=== PATIENT | male | born 1950 | race Caucasian/White ===

== ENCOUNTER → 2017-02-17 | Outpatient (CLI) | payer BC ==
[~2017-02-17] MED LIST: ASPI-621 PO; ASPIRIN PO; CALCIUM PO; CARV6.252 PO; CLOP75TA PO; COQ10 PO; FISH1CAP PO; FLUTICASONE; FURO-93 PO; HYDR-3245 PO; ISOS60TA36 PO; LISI-167 PO; LISI-170 PO; METF500T4 PO; NIAC500T9 PO; NITR0.4T SL; NITROSTAT PO; POTA10TA5 PO; PRAV40TA2 PO; PRAV80TA2 PO; TRAM50TA2 PO
== END | disposition home or self-care (01) ==
LOC: CFH 14:02
PROVIDERS: ATTEND Internal Medicine Cardiovascular Disease
DX: I70.0 Atherosclerosis of aorta (principal); I65.8 Occlusion and stenosis of other precerebral arteries; E78.2 Mixed hyperlipidemia; I10 Essential (primary) hypertension; Z98.890 Other specified postprocedural states
CPT/HCPCS: 71020

== ENCOUNTER 2017-06-17 12:05 | Day surgery (SDC) | payer MEDICARE ==
[~2017-06-17] VITALS: Ht 172.7 cm; Wt 80.9 kg
[2017-06-17 13:29] VITALS: BP 183/94
[2017-06-17] MEDS ORDERED: OMEP20TA62 PO (13:48)
[2017-06-17] MEDS ORDERED: ATOR40TA PO (13:48)
[2017-06-17] MEDS ORDERED: LOSA100T6 PO (13:48)
[2017-06-17] MEDS ORDERED: FLUT9.9S NAS (13:48)
[2017-06-17] MEDS ORDERED: ALLERGY PO (13:50)
[2017-06-17 13:53] LABS: BASOPHILS # (AUTO) 0.02 x10^3/uL (0-0.1); BASOPHILS % (AUTO) 0 % (0-1); EOSINOPHILS # (AUTO) 0.17 x10^3/uL (0-0.4); EOSINOPHILS % (AUTO) 2 % (1-7); LYMPHOCYTES # (AUTO) 1.93 x10^3/uL (1-3.4); LYMPHOCYTES % (AUTO) 25 % (22-44); MD NO; MEAN CORPUSCULAR HEMOGLOBIN 33.7 pg (27.5-34.5); MEAN CORPUSCULAR HGB CONC 34.2 g/dL (33.2-36.2); MEAN CORPUSCULAR VOLUME 98.7 fL (81-97); MEAN PLATELET VOLUME 7.8 fL (7.4-10.4); MONOCYTES # (AUTO) 0.66 x10^3/uL (0.2-0.8); MONOCYTES % (AUTO) 9 % (2-9); NEUTROPHILS # (AUTO) 4.96 x10^3/uL (1.8-6.8); NEUTROPHILS % (AUTO) 64 % (42-75); PLATELET COUNT 329 x10^3/uL (130-400); RED BLOOD COUNT 4.17 x10^6/uL (4.38-5.82); RED CELL DISTRIBUTION WIDTH 12.8 % (9.4-14.8)
[2017-06-17 14:06] LABS: ANION GAP 8 mmol/L (5-15); CALCIUM 9.3 mg/dL (8.5-10.1); CHLORIDE 106 mmol/L (98-107); CREATININE 0.99 mg/dL (0.7-1.3)
[2017-06-17] MEDS ORDERED: LIDOCAINE 2%, 20ML ONE (15:49)
[2017-06-17] MEDS ORDERED: TICAGRELOR 90 MG TABLET ONE (15:49)
[2017-06-17] MEDS ORDERED: NITROGLYCERIN 5 MG/ML, 10ML ONE (15:49)
[2017-06-17] MEDS ORDERED: HEPARIN 1,000 UNITS/ML, 10ML ONE (15:49)
[2017-06-17] MEDS ORDERED: BIVALIRUDIN 250 MG ONE (15:49)
[2017-06-17] MEDS ORDERED: FENTANYL PF 100 MCG/2ML ONE (15:49)
[2017-06-17] MEDS ORDERED: MIDAZOLAM 1 MG/ML, 5ML ONE (15:49)
[2017-06-17] MEDS ORDERED: VERAPAMIL 2.5 MG/ML, 2ML ONE (15:49)
[2017-06-17] MEDS ORDERED: CLOPIDOGREL 75 MG TABLET ONE (15:52)
[2017-06-17] MEDS ORDERED: SODIUM CHLORIDE 0.9% 1,000 ML IV SCH (16:26)
== END 2017-06-17 23:49 ==
LOC: CACL 12:05 → 5SO 16:34 → CACL 23:49
PROVIDERS: ATTEND Internal Medicine Cardiovascular Disease
DX: I25.10 Atherosclerotic heart disease of native coronary artery without angina pectoris (principal); I70.0 Atherosclerosis of aorta; I10 Essential (primary) hypertension; E78.2 Mixed hyperlipidemia; I65.8 Occlusion and stenosis of other precerebral arteries; E78.5 Hyperlipidemia, unspecified; E11.9 Type 2 diabetes mellitus without complications; I73.89 Other specified peripheral vascular diseases; Z82.49 Family history of ischemic heart disease and other diseases of the circulatory system; Z79.899 Other long term (current) drug therapy; Z79.01 Long term (current) use of anticoagulants
CPT/HCPCS: 36415; 80048; 85025; 93458; 99156; C1769; C1894; J1644; J2250; J3010; J3490; Q9967; J0583

== ENCOUNTER → 2017-06-22 | Outpatient (CLI) | payer MEDICARE ==
[~2017-06-22] MED LIST changes: +ALLERGY PO; +ATOR40TA PO; +FLUT9.9S NAS; +GADOBUTROL 10 MMOL/10 ML VIAL ONE; +LOSA100T6 PO; +OMEP20TA62 PO
== END ==
LOC: CFH 08:56
PROVIDERS: ATTEND Urology
DX: J98.11 Atelectasis (principal); Z85.528 Personal history of other malignant neoplasm of kidney
CPT/HCPCS: 74183; A9585

== ENCOUNTER → 2017-10-18 | Outpatient (CLI) | payer MEDICARE ==
[~2017-10-18] MED LIST changes: -GADOBUTROL 10 MMOL/10 ML VIAL ONE; -METF500T4 PO; +METF500T5 PO
== END | disposition home or self-care (01) ==
LOC: CFH 10:26
PROVIDERS: ATTEND Nurse Practitioner
DX: J90 Pleural effusion, not elsewhere classified (principal); I25.10 Atherosclerotic heart disease of native coronary artery without angina pectoris; E11.9 Type 2 diabetes mellitus without complications; I10 Essential (primary) hypertension; E78.2 Mixed hyperlipidemia
CPT/HCPCS: 71250

== ENCOUNTER → 2017-11-15 | Outpatient (CLI) | payer MEDICARE | END | disposition home or self-care (01) | LOC: CVU 14:03 | PROVIDERS: ATTEND Internal Medicine Cardiovascular Disease | DX: I65.23 Occlusion and stenosis of bilateral carotid arteries (principal); I65.8 Occlusion and stenosis of other precerebral arteries | CPT/HCPCS: 93880 ==

== ENCOUNTER → 2017-12-17 | Outpatient (CLI) | payer MEDICARE ==
[~2017-12-17] MED LIST changes: +LIDOCAINE-MPF 2%, 2ML ONE; -LOSA100T6 PO; +LOSA100T7 PO; +METF500T17 PO; -METF500T5 PO
== END | disposition home or self-care (01) ==
LOC: RAD 12:52
PROVIDERS: ATTEND Internal Medicine
DX: J90 Pleural effusion, not elsewhere classified (principal)
CPT/HCPCS: 32555; 71045; 82945; 83615; 84157; 88112; 89051; J3490

== ENCOUNTER 2018-01-19 08:02 | Inpatient (IN) | payer MEDICARE ==
[2018-01-17 11:01] LABS: ALANINE AMINOTRANSFERASE 35 U/L (12-78); ANION GAP 5 mmol/L (5-15); CALCIUM 8.9 mg/dL (8.5-10.1); CHLORIDE 107 mmol/L (98-107); CREATININE 0.93 mg/dL (0.7-1.3)
[2018-01-17 11:03] LABS: ALKALINE PHOSPHATASE 110 U/L (45-117); BILIRUBIN,TOTAL 0.9 mg/dL (0.2-1.0)
[~2018-01-19] VITALS: Ht 167.6 cm; Wt 84.0 kg
[~2018-01-19 08:02] MED LIST changes: +ISOS30TA21 PO; -LIDOCAINE-MPF 2%, 2ML ONE; +TIOT4MIS3 INH
[2018-01-19] MEDS ORDERED: FENTANYL PF 250 MCG/5ML ONE (08:07)
[2018-01-19 08:23] VITALS: BP 152/79
[2018-01-19] MEDS ORDERED: LABETALOL 5MG/ML, 20ML IV PRN ×2 (08:30→10:00)
[2018-01-19] MEDS ORDERED: OXYcodone 5 MG/5 ML ORAL.SOL UDC PO PRN (08:30)
[2018-01-19] MEDS ORDERED: PROCHLORPERAZINE 5 MG/ML, 2ML IV PRN (08:30)
[2018-01-19] MEDS ORDERED: MEPERIDINE/PF 25MG/0.5ML IVPush PRN ×2 (08:30→10:00)
[2018-01-19] MEDS ORDERED: FENTANYL PF 100 MCG/2ML IV PRN (08:30)
[2018-01-19] MEDS ORDERED: hydrALAzine 20 MG/ML, 1ML IV PRN ×2 (08:30→10:00)
[2018-01-19] MEDS ORDERED: HYDROmorphone 2 MG/ML, 1ML IV PRN (08:30)
[2018-01-19] MEDS ORDERED: DIPHENHYDRAMINE 50 MG/ML, 1ML IVPush PRN (08:30)
[2018-01-19] MEDS ORDERED: HALOPERIDOL 5 MG/ML IV PRN (08:30)
[2018-01-19] MEDS ORDERED: LACTATED RINGERS 1,000 ML IV SCH (09:00)
[2018-01-19] MEDS ORDERED: GABAPENTIN 300 MG CAPSULE PO ONE (09:00)
[2018-01-19] MEDS ORDERED: ACETAMINOPHEN 500 MG TABLET PO ONE (09:00)
[2018-01-19] MEDS ORDERED: FENTANYL PF 100 MCG/2ML ONE ×2 (09:23→11:31)
[2018-01-19] MEDS ORDERED: BUPIVACAINE/PF-EPI 0.5% 1:200K ONE (09:31)
[2018-01-19] MEDS ORDERED: MORPHINE SULFATE 4 MG/ML, 1ML IVPush PRN (10:00)
[2018-01-19] MEDS ORDERED: ALBUTEROL/IPRATROPIUM 2.5MG/0.5MG, 3 ML NPPB PRN (10:00)
[2018-01-19] MEDS ORDERED: HYDROmorphone 1 MG/ML, 1ML IV PRN (10:00)
[2018-01-19] MEDS ORDERED: MIDAZOLAM 1 MG/ML, 2ML IV PRN (10:00)
[2018-01-19] MEDS ORDERED: METOPROLOL 1 MG/ML, 5ML IV PRN (10:00)
[2018-01-19] MEDS ORDERED: EPHEDRINE 50 MG/ML, 1ML IVPush PRN (10:00)
[2018-01-19] MEDS ORDERED: LORazepam 2 MG/ML, 1ML IVPush PRN (10:00)
[2018-01-19] MEDS ORDERED: EPHEDRINE 50 MG/ML, 1ML ONE (10:06)
[2018-01-19] MEDS ORDERED: DOXYCYCLINE 500 MG in SODIUM CHLORIDE 0.9% 60 ML INTRAPL ONE (10:30)
[2018-01-19] MEDS: FENTANYL PF 100 MCG/2ML IV PRN ×2 (11:22→11:50)
[2018-01-19] MEDS ORDERED: OXYcodone 5 MG/5 ML ORAL.SOL UDC ONE (11:31)
[2018-01-19] MEDS ORDERED: NEOSTIGMINE 1 MG/ML, 10ML ONE (11:34)
[2018-01-19] MEDS ORDERED: SUCCINYLCHOLINE 20 MG/ML, 10ML ONE (11:34)
[2018-01-19] MEDS ORDERED: ONDANSETRON 2MG/ML, 2ML ONE (11:34)
[2018-01-19] MEDS ORDERED: CEFAZOLIN 1,000 MG ONE (11:34)
[2018-01-19] MEDS ORDERED: PROPOFOL 10 MG/ML, 20ML ONE (11:34)
[2018-01-19] MEDS ORDERED: GLYCOPYRROLATE 0.2MG/1ML, 5ML ONE (11:34)
[2018-01-19] MEDS ORDERED: ROCURONIUM 10MG/ML,5ML ONE (11:34)
[2018-01-19] MEDS ORDERED: DEXAMETHASONE 4 MG/ML, 1ML ONE (11:34)
[2018-01-19] MEDS ORDERED: LABETALOL 5MG/ML, 20ML ONE (11:47)
[2018-01-19] MEDS ORDERED: hydrALAzine 20 MG/ML, 1ML ONE (11:57)
[2018-01-19 12:05] VITALS: BP 138/67
[2018-01-19] MEDS ORDERED: ONDANSETRON 2MG/ML, 2ML IV PRN (14:30)
[2018-01-19] MEDS ORDERED: LACTATED RINGERS 500 ML IV PRN (14:30)
[2018-01-19] MEDS ORDERED: OXYcodone IR 5MG TABLET PO PRN (14:30)
[2018-01-19] MEDS: ACETAMINOPHEN 500 MG TABLET PO SCH ×2 (17:29→23:20)
[2018-01-19] MEDS: POTASSIUM CHLORIDE 20 MEQ in D5%-0.45% NACL 1,000 ML IV SCH (17:29)
[2018-01-19 19:19] VITALS: BP 124/63
[2018-01-19] MEDS: CEFAZOLIN PMX 2GM/100ML 100 ML IVPB SCH (19:41)
[2018-01-19] MEDS: ATORVASTATIN 40 MG TABLET PO SCH (19:41)
[2018-01-20 00:44] VITALS: BP 126/63
[2018-01-20] MEDS: CEFAZOLIN PMX 2GM/100ML 100 ML IVPB SCH (03:06)
[2018-01-20] MEDS: POTASSIUM CHLORIDE 20 MEQ in D5%-0.45% NACL 1,000 ML IV SCH ×2 (03:58→16:12)
[2018-01-20 04:00] VITALS: BP 125/67
[2018-01-20] MEDS: ACETAMINOPHEN 500 MG TABLET PO SCH ×4 (05:44→23:29)
[2018-01-20] MEDS: CARVEDILOL 6.25 MG TABLET PO SCH ×2 (05:44→17:04)
[2018-01-20 07:35] VITALS: BP 124/72
[2018-01-20] MEDS: OMEPRAZOLE 20 MG CAPSULE.DR PO SCH (08:53)
[2018-01-20] MEDS: LOSARTAN 50MG TABLET PO SCH (08:53)
[2018-01-20] MEDS: ISOSORBIDE DINITRATE 30 MG TABLET PO SCH (08:53)
[2018-01-20] MEDS: HEPARIN 5,000 UNITS/ML, 1ML SQ SCH ×3 (08:53→23:29)
[2018-01-20] MEDS: FLUTICASONE NASAL SPRAY 16GM NAS SCH (10:38)
[2018-01-20 15:07] VITALS: BP_SYST 109; BP_SYST 137; BP_DIAS 56; BP_DIAS 88
[2018-01-20 18:58] VITALS: BP 115/56
[2018-01-20] MEDS: ATORVASTATIN 40 MG TABLET PO SCH (20:02)
[2018-01-21 02:01] VITALS: BP 135/71
[2018-01-21] MEDS: CARVEDILOL 6.25 MG TABLET PO SCH ×2 (05:50→18:02)
[2018-01-21] MEDS: ACETAMINOPHEN 500 MG TABLET PO SCH ×4 (05:50→23:42)
[2018-01-21] MEDS: POTASSIUM CHLORIDE 20 MEQ in D5%-0.45% NACL 1,000 ML IV SCH ×2 (05:51→18:02)
[2018-01-21 07:17] VITALS: BP 132/71
[2018-01-21] MEDS: OMEPRAZOLE 20 MG CAPSULE.DR PO SCH (07:30)
[2018-01-21] MEDS: HEPARIN 5,000 UNITS/ML, 1ML SQ SCH ×2 (08:17→16:20)
[2018-01-21] MEDS: ISOSORBIDE DINITRATE 30 MG TABLET PO SCH (08:18)
[2018-01-21] MEDS: LOSARTAN 50MG TABLET PO SCH (08:18)
[2018-01-21] MEDS: FLUTICASONE NASAL SPRAY 16GM NAS SCH (08:18)
[2018-01-21 13:30] VITALS: BP 120/65
[2018-01-21 18:36] VITALS: BP 118/56
[2018-01-21] MEDS: ATORVASTATIN 40 MG TABLET PO SCH (21:57)
[2018-01-22] MEDS: HEPARIN 5,000 UNITS/ML, 1ML SQ SCH ×2 (01:27→07:39)
[2018-01-22 02:25] VITALS: BP 143/73
[2018-01-22] MEDS: ACETAMINOPHEN 500 MG TABLET PO SCH ×2 (05:41→10:25)
[2018-01-22] MEDS: CARVEDILOL 6.25 MG TABLET PO SCH (05:42)
[2018-01-22] MEDS ORDERED: ACET-1600 PO (07:11)
[2018-01-22] MEDS ORDERED: IBUP-1223 PO (07:11)
[2018-01-22] MEDS ORDERED: OXYC5CAP2 PO (07:13)
[2018-01-22] MEDS: POTASSIUM CHLORIDE 20 MEQ in D5%-0.45% NACL 1,000 ML IV SCH (07:20)
[2018-01-22] MEDS: OMEPRAZOLE 20 MG CAPSULE.DR PO SCH (07:30)
[2018-01-22] MEDS: ISOSORBIDE DINITRATE 30 MG TABLET PO SCH (07:40)
[2018-01-22] MEDS: FLUTICASONE NASAL SPRAY 16GM NAS SCH (07:40)
[2018-01-22] MEDS: LOSARTAN 50MG TABLET PO SCH (07:41)
[2018-01-22 09:48] VITALS: BP 76/46
[2018-01-22] MEDS ORDERED: SODIUM CHLORIDE 0.9%, 250ML IVBOLUS ONE (10:30)
[2018-01-22 12:27] VITALS: BP 117/66
== END 2018-01-22 12:40 | disposition home or self-care (01) | DRG 167 ==
LOC: OUT 08:02 → 4NOR 12:29 → OUT 13:16
PROVIDERS: ADMIT Surgery; ATTEND Surgery
PROC: 0BBP4ZX Excision of Left Pleura, Percutaneous Endoscopic Approach, Diagnostic (ICD-10-PCS; 2018-01-19)
PROC: 0W9B4ZZ Drainage of Left Pleural Cavity, Percutaneous Endoscopic Approach (ICD-10-PCS; 2018-01-19)
PROC: 3E0L4GC Introduction of Other Therapeutic Substance into Pleural Cavity, Percutaneous Endoscopic Approach (ICD-10-PCS; 2018-01-19)
PROC: 0BBP4ZX Excision of Left Pleura, Percutaneous Endoscopic Approach, Diagnostic (ICD-10-PCS; principal; 2018-01-19 10:00)
DX: J90 Pleural effusion, not elsewhere classified (principal); J98.11 Atelectasis; J44.9 Chronic obstructive pulmonary disease, unspecified; E11.9 Type 2 diabetes mellitus without complications; K21.9 Gastro-esophageal reflux disease without esophagitis; M19.90 Unspecified osteoarthritis, unspecified site; Z86.73 Personal history of transient ischemic attack (TIA), and cerebral infarction without residual deficits; Z79.84 Long term (current) use of oral hypoglycemic drugs
CPT/HCPCS: 36415; 71045; 80053; 82962; 87015; 87070; 87075; 87102; 87116; 87205; 87206; 88112; 88305; 93005; C1729; G0378; J0690; J1100; J1644; J2405; J2704; J2710; J3010; J3480; J3490; J0330; J0360; J7050; J7120

== ENCOUNTER → 2018-05-06 | Outpatient (CLI) | payer MEDICARE ==
[~2018-05-06] MED LIST changes: +ACET-1600 PO; -ASPI-621 PO; +ASPI81TA45 PO; +IBUP-1223 PO; +LOSA100T14 PO; -LOSA100T7 PO; +OXYC5CAP2 PO
== END | disposition home or self-care (01) ==
LOC: CFH 09:55
PROVIDERS: ATTEND Internal Medicine
DX: J44.9 Chronic obstructive pulmonary disease, unspecified (principal); J90 Pleural effusion, not elsewhere classified
CPT/HCPCS: 71250

== ENCOUNTER 2018-11-11 08:48 | Outpatient (CLI) | payer MEDICARE | END 2018-11-11 23:59 | disposition home or self-care (01) | LOC: CFH 08:48 | PROVIDERS: ATTEND Nurse Practitioner | DX: J98.11 Atelectasis (principal); J90 Pleural effusion, not elsewhere classified; I70.0 Atherosclerosis of aorta | CPT/HCPCS: 71250 ==

== ENCOUNTER → 2019-09-11 | Outpatient (CLI) | payer MEDICARE ==
[~2019-09-11] MED LIST changes: -NITR0.4T SL; +NITR0.4T41 SL
== END | disposition home or self-care (01) ==
LOC: CVU 15:23
PROVIDERS: ATTEND Internal Medicine Cardiovascular Disease
DX: I65.23 Occlusion and stenosis of bilateral carotid arteries (principal); I10 Essential (primary) hypertension; E78.5 Hyperlipidemia, unspecified; E11.9 Type 2 diabetes mellitus without complications; Z95.1 Presence of aortocoronary bypass graft
CPT/HCPCS: 93880

== ENCOUNTER → 2020-02-07 | Outpatient (CLI) | payer MEDICARE | END | disposition home or self-care (01) | LOC: CFH 10:07 | PROVIDERS: ATTEND Internal Medicine | DX: J98.4 Other disorders of lung (principal); J98.11 Atelectasis; J44.9 Chronic obstructive pulmonary disease, unspecified | CPT/HCPCS: 71250 ==

== ENCOUNTER → 2020-03-05 | Outpatient (CLI) | payer MEDICARE | END | disposition home or self-care (01) | LOC: CVU 07:34 | PROVIDERS: ATTEND Internal Medicine Cardiovascular Disease | DX: I65.23 Occlusion and stenosis of bilateral carotid arteries (principal); I08.0 Rheumatic disorders of both mitral and aortic valves; I25.10 Atherosclerotic heart disease of native coronary artery without angina pectoris; I10 Essential (primary) hypertension; E78.5 Hyperlipidemia, unspecified; Z95.1 Presence of aortocoronary bypass graft | CPT/HCPCS: 93306; 93880 ==

== ENCOUNTER → 2020-08-16 | Outpatient (CLI) | payer MEDICARE ==
[~2020-08-16] MED LIST changes: +CARV3.1212 PO; +CARV3.122 PO; -HYDR-3245 PO; +HYDR1TAB53 PO; +LOSA100T2 PO; +LOSA50TA14 PO; +MULT-658 PO; +SPIRIVA INH
== END | disposition home or self-care (01) ==
LOC: CVU 15:45
PROVIDERS: ATTEND Surgery
DX: I65.23 Occlusion and stenosis of bilateral carotid arteries (principal); I73.9 Peripheral vascular disease, unspecified
CPT/HCPCS: 93880

== ENCOUNTER → 2020-08-30 | Outpatient (CLI) | payer MEDICARE ==
[~2020-08-30] MED LIST changes: +REGADENOSON 0.4 MG/5 ML SYRINGE ONE
== END | disposition home or self-care (01) ==
LOC: CFH 07:35
PROVIDERS: ATTEND Internal Medicine Cardiovascular Disease
DX: I25.10 Atherosclerotic heart disease of native coronary artery without angina pectoris (principal); I10 Essential (primary) hypertension
CPT/HCPCS: 78452; 93017; A9502; J2785

== ENCOUNTER 2020-12-24 04:54 | Inpatient (IN) | payer MEDICARE ==
[~2020-12-24] VITALS: Ht 172.7 cm; Wt 88.1 kg
[2020-12-25 15:40] VITALS: BP 186/67
== END 2020-12-25 18:02 | disposition home or self-care (01) | DRG 281 ==
LOC: SUATTDRO 07:14 → ED 07:15 → INTOOBSV 08:01 → EDIP 08:01 → OBSVTOIN 09:55 → 5SO 19:24
PROVIDERS: ADMIT Family Medicine; ATTEND Family Medicine
DX: I48.91 Unspecified atrial fibrillation (principal); I21.A1 Myocardial infarction type 2; G45.9 Transient cerebral ischemic attack, unspecified; Z86.73 Personal history of transient ischemic attack (TIA), and cerebral infarction without residual deficits; Z20.822 Contact with and (suspected) exposure to COVID-19; E11.9 Type 2 diabetes mellitus without complications; E78.5 Hyperlipidemia, unspecified; I10 Essential (primary) hypertension; I25.10 Atherosclerotic heart disease of native coronary artery without angina pectoris; J44.9 Chronic obstructive pulmonary disease, unspecified; Z79.84 Long term (current) use of oral hypoglycemic drugs; Z95.1 Presence of aortocoronary bypass graft